=== PATIENT | male | born 1945 | race Caucasian/White ===

== ENCOUNTER 2016-11-25 15:54 | Emergency (ER) | payer OTHER ==
[~2016-11-25] VITALS: Ht 180.3 cm; Wt 87.0 kg
[~2016-11-25 15:54] MED LIST: OXYC-360 PO; PROM25SU8 PO; ZOCO40TA PO
[2016-11-25 16:01] VITALS: BP 140/101; PULSE 99; RESP 16; TEMP 98.3; O2SAT 98
[2016-11-25] MEDS ORDERED: CORT1SOL LEFT EAR (16:10)
--- NOTE | 2016-11-25 16:13 | PD ---
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 They looked in his ear and told him he needed to come here and get antibiotic medication. He has been having some ear drainage for a few days. He does not have ear pain. Severity of symptoms is mild PFSH Past Medical History High Cholesterol: Yes Inguinal Hernia: Yes Kidney Stones: Yes Past Surgical History Other Surgery: Yes (BILAT INGUINAL HERNIA REPAIR) Social History Alcohol Use: Yes (OCCASIONALLY) Tobacco Use: Yes (CIGARETTE OCCASIONALLY) Substance Use: No Allergies-Medications (Allergen,Severity, Reaction): Coded Allergies: No Known Allergies (Verified , 11/25/16) Reported Meds & Prescriptions Reported Meds & Active Scripts Active Phenergan (Promethazine HCl) 25 Mg Tab 25 Mg PO Q4-6HPRN FOR NAUSEA/VOMITING Percocet (Oxycodone/Acetaminophen) 5 Mg/325 Mg Tab 1-2 Tab PO Q4-6HPRN Reported Zocor (Simvastatin) 40 Mg Tab 40 Mg PO HS Review of Systems General / Constitutional: No: Fever HENT: No: Headaches Cardiovascular: No: Chest Pain or Discomfort Physical Exam Narrative NECK: Symmetrical appearance, midline trachea. No mass or crepitus. Thyroid without enlargement, tenderness, or mass. SKIN: Focused skin assessment reveals no rash or ulcers. Skin is warm and dry. Palpation shows no induration or nodules. Right TM and canal look normal Left TM looks normal. The canal seems a bit swollen/inflamed. I don't see any active drainage Data Data Last Documented VS Vital Signs Date Time Temp Pulse Resp B/P Pulse Ox O2 Delivery O2 Flow Rate FiO2 11/25/16 16:01 98.3 99 16 140/101 98 MDM Medical Decision Making Medical Screen Exam Complete: Yes Emergency Medical Condition: Yes Medical Record Reviewed: Yes Differential Diagnosis Serous otitis, otitis media, cellulitis Narrative Course I have reviewed the patient's electronic medical record. Patient's presentation has some features consistent with mild serous otitis. I wrote him some Cortisporin drops Diagnosis Primary Impression: Acute serous otitis media of left ear without rupture Additional Instructions: The patient was advised to follow up with their physician and return if they worsen. Med/Other Pt SpecificInfo: Prescription(s) given Scripts Gdqxeebs-Qbowffsal-LA Otic Drops (Cortisporin HC Otic Drops)3.5-10,000-1 Mg- Units-% Soln4 Drop LEFT EAR QID #1 BOTTLE Ref 0 Prov:Mikel Jerome MD 11/25/16 Disposition: 01 DISCHARGE HOME Condition: Stable Mikel Jerome MD November 25, 2016 16:13
== END 2016-11-25 16:32 | disposition home or self-care (01) ==
LOC: PHEFT 15:54
DX: H65.02 Acute serous otitis media, left ear (principal); F17.210 Nicotine dependence, cigarettes, uncomplicated; E78.00 Pure hypercholesterolemia, unspecified
CPT/HCPCS: 99282